=== PATIENT | male | born 1970 | race Caucasian/White ===

== ENCOUNTER 2023-09-26 12:06 | Emergency (ER) | payer BC ==
[2023-09-26 12:50] LABS: BASOPHILS ABSOLUTE AUTO 0.1 K/mm3 (0.0-0.2); BASOPHILS PERCENT AUTO 0.5 % (0.0-1.0); EOSINOPHILS ABSOLUTE AUTO 0.1 K/mm3 (0.0-0.4); EOSINOPHILS PERCENT AUTO 0.8 % (0.0-6.0); HEMATOCRIT 49.4 % (42.0-52.0); HEMOGLOBIN 16.6 gm/dl (14.0-18.0); IMMATURE GRAN ABSOLUTE AUTO 0.03 K/mm3 (0.00-0.05); IMMATURE GRAN PERCENT AUTO 0.3 % (0.0-0.4); LYMPHOCYTES ABSOLUTE AUTO 1.6 K/mm3 (1.0-4.8); LYMPHOCYTES PERCENT AUTO 14.5 % (24.0-44.0); MEAN CORPUSCULAR HEMOGLOBIN 30.1 pg (28.0-32.0); MEAN CORPUSCULAR HGB CONC 33.6 g/dl (32.0-36.0); MEAN CORPUSCULAR VOLUME 89.7 fl (83.0-99.0); MEAN PLATELET VOLUME 9.8 fl (9.4-12.4); MONOCYTES ABSOLUTE AUTO 0.8 K/mm3 (0.0-0.8); MONOCYTES PERCENT AUTO 6.9 % (0.0-8.0); NEUTROPHILS ABSOLUTE AUTO 8.6 K/mm3 (1.8-7.7); PLATELET COUNT,PLT 187 K/mm3 (150-400); RED BLOOD CELL COUNT 5.51 M/mm3 (4.52-5.90); WHITE BLOOD CELL COUNT,WBC 11.09 K/mm3 (3.9-11.3)
[2023-09-26 13:11] LABS: A/G RATIO 1.1 (1-2); ALBUMIN 4.1 g/dl (3.4-5.0); ANION GAP 14.1 (5-15); BILIRUBIN TOTAL 0.6 mg/dL (0.2-1.0); C-REACTIVE PROTEIN 0.14 mg/dL (<0.30); CALCIUM 8.7 mg/dL (8.5-10.1); EST CRCL DRUG DOSING (CG) 78.03 mL/min; POTASSIUM,K 4.1 mEq/L (3.5-5.1); PROTEIN TOTAL,TP 7.8 g/dl (6.4-8.2)
[2023-09-26] MEDS: Iopamidol 612 MG/ML 100 ML Bottle IVPUSH ONE (13:24)
[2023-09-26] MEDS: Ondansetron 4 MG/2 ML SDV IVPUSH ONE (13:50)
[2023-09-26] MEDS: Morphine 4 MG/ML Syringe IVPUSH ONE (13:54)
[2023-09-26] MEDS: Lidocaine 2% 11 ML Jelly Filled Syringe ONE (14:18)
[2023-09-26] MEDS: Lidocaine 2% 11 ML Jelly Filled Syringe MUCMEM ONE (14:18)
[2023-09-26] MEDS: Sodium Chloride 0.9% 10 ML Syringe FLUSH PRN (14:19)
[2023-09-26] MEDS: Lidocaine 2% Jelly 5 ML Tube TOP ONE (14:19)
== END 2023-09-26 15:11 | disposition home or self-care (01) ==
LOC: JD.ED 12:06
DX: T18.5XXA Foreign body in anus and rectum, initial encounter (principal); Z79.899 Other long term (current) drug therapy; W44.8XXA Other foreign body entering into or through a natural orifice, initial encounter
CPT/HCPCS: 36415; 74177; 80053; 85025; 86140; 96374; 96375; 99284; A9270; J2270; J2405; J3490; Q9967